=== PATIENT | female | born 1985 | race Caucasian/White ===

== ENCOUNTER → 2018-06-20 | Outpatient (CLI) | payer OTHER | LOC: FIMAGING 08:30 | PROVIDERS: ATTEND Radiology Diagnostic Radiology | DX: I83.91 Asymptomatic varicose veins of right lower extremity (principal) ==

== ENCOUNTER 2018-09-07 11:07 | Day surgery (SDC) | payer OTHER ==
[2018-09-07] MEDS ORDERED: fentaNYL 100 MCG/2 ML INJ IVP PRN (11:34)
[2018-09-07] MEDS ORDERED: MIDAZOLAM 2 MG/2 ML VIAL IVP PRN (11:34)
[2018-09-07] MEDS ORDERED: ceFAZolin 2 GM/DEXTROSE 100 ML IV ONE (11:34)
[2018-09-07] MEDS ORDERED: NALOXONE HCL 0.4 MG/ML INJ IVP PRN (11:34)
[2018-09-07] MEDS ORDERED: HEPARIN 10,000 UNIT/10 ML MDV (1,000 UNIT/ML) IVP PRN (11:34)
[2018-09-07] MEDS ORDERED: GLUCAGON HCL 1 MG VIAL IVP PRN (11:34)
[2018-09-07] MEDS ORDERED: NS 1,000 ML IV ONE (11:34)
[2018-09-07] MEDS ORDERED: FLUMAZENIL 0.5 MG/5 ML MDV IVP PRN (11:34)
[2018-09-07] MEDS ORDERED: PROTAMINE SULFATE 50 MG/5 ML VIAL IVP PRN (11:34)
[2018-09-07] MEDS ORDERED: ONDANSETRON 4 MG/2 ML VIAL IVP ONE (11:34)
[2018-09-07] MEDS ORDERED: ALTEPLASE 2 MG VIAL IVP PRN (11:34)
[2018-09-07] MEDS ORDERED: MEPERIDINE 25 MG/ML SYR IVP PRN (11:34)
--- NOTE | 2018-09-07 14:01 | PDGENHP ---
History & Physical Chief Complaint: RLE VARICOSE VEINS History of Present Illness: ROPEY VARICOSE VEINS WITH SWELLING AND PAIN Pertinent Past, Social, Family History: NON SMOKER Relevant Physical Exam: VEINS MAPPED OUT Cardiorespiratory Assessment: RRR, CTA
--- NOTE | 2018-09-07 14:01 | PDPROPOC ---
Sedation Plan of Care Sedation Plan of Care: vital signs stable, mental status noted, patient educated of risks, benefits, alternatives, patient can tolerate sedation ASA Classification: ASA 1 Planned drugs: fentanyl, midazolam Mallampati Score: Class 1 Mallampati Reference Image: Patient passed 3-3-2 rule?: Yes
[2018-09-07] MEDS ORDERED: fentaNYL 100 MCG/2 ML INJ ONE (16:05)
[2018-09-07] MEDS ORDERED: FLUMAZENIL 0.5 MG/5 ML MDV IVP ONE (16:05)
[2018-09-07] MEDS ORDERED: CEFAZOLIN 2 GM/DEXTROSE/100 ML BAG IV ONE (16:05)
[2018-09-07] MEDS ORDERED: NALOXONE HCL 0.4 MG/ML INJ ONE (16:05)
[2018-09-07] MEDS ORDERED: MIDAZOLAM 2 MG/2 ML VIAL ONE (16:05)
[2018-09-07] MEDS ORDERED: LIDO/EPI 1% **for epidural** 30 ML SDV ONE (16:09)
[2018-09-07] MEDS ORDERED: NA BICARBONATE 50 MEQ/50 ML VIAL ONE (16:09)
[2018-09-07] MEDS ORDERED: SODIUM TETRADECYL SULFATE 3% 2 ML VIAL IV ONE (16:09)
[2018-09-07] MEDS ORDERED: ONDANSETRON 4 MG/2 ML VIAL ONE (16:17)
[2018-09-07] MEDS ORDERED: HYDROCODONE/APAP 5/325 TAB PO PRN (17:28)
[2018-09-07] MEDS ORDERED: IBUPROFEN 200 MG TAB PO ONE (17:28)
[2018-09-07] MEDS ORDERED: ONDANSETRON DISINTEGRATING 4 MG TAB PO PRN (17:28)
[2018-09-07] MEDS ORDERED: ONDANSETRON 4 MG/2 ML VIAL IVP PRN (17:28)
[2018-09-07] MEDS ORDERED: NS 1,000 ML IV SCH (17:30)
--- NOTE | 2018-09-07 17:35 | PDRADPN ---
Radiology Procedure Note Date of Procedure: 09/07/18 Radiologist: Sondra Irwin Anesthesia: IV Sedation Pre-op Diagnosis: RT LEG VARICOSE VEINS Post-op Diagnosis: SAME Indication: PAIN AND SWELLING Procedure: LASER, PHLEBECTOMY, SLEROTHERAPY Inf/Abcess present in the surg proc area at time of surgery?: No
[2018-09-07 20:17] VITALS: BP 110/62
== END 2018-09-07 20:44 | disposition home or self-care (01) ==
LOC: FIMAGING 11:07
PROVIDERS: ATTEND Radiology Diagnostic Radiology
PROC: 3E033TZ Introduction of Destructive Agent into Peripheral Vein, Percutaneous Approach (ICD-10-PCS; principal; 2018-09-07 17:44)
PROC: B54BZZA Ultrasonography of Right Lower Extremity Veins, Guidance (ICD-10-PCS; principal; 2018-09-07 17:44)
PROC: 065P3ZZ Destruction of Right Saphenous Vein, Percutaneous Approach (ICD-10-PCS; principal; 2018-09-07 17:44)
PROC: 06DP3ZZ Extraction of Right Saphenous Vein, Percutaneous Approach (ICD-10-PCS; principal; 2018-09-07 17:44)
DX: I83.811 Varicose veins of right lower extremity with pain (principal)
CPT/HCPCS: J0690; J2250; J2310; J2405; J3010

== ENCOUNTER → 2018-10-15 | Outpatient (CLI) | payer BC | LOC: FIMAGING 15:18 ==